=== PATIENT | female | born 1930 | race Caucasian/White ===

== ENCOUNTER 2016-09-08 20:20 | Emergency (ER) | payer MEDICARE, OTHER ==
[2016-09-08 20:33] VITALS: BP 170/65
[2016-09-08] MEDS ORDERED: Diphtheria,Pertussis(Acell),Tetanus Vaccine 0.5 ML SDV inactive IM ONE (20:35)
--- NOTE | 2016-09-08 20:36 | EDM.PDOC ---
ED HPI HEAD INJURY - General Chief Complaint: Head Injury Stated Complaint: INJURY TO HEAD Time Seen by Provider: 09/08/16 20:33 Source of Information: Reports: Patient, Family (daughter and son. ) History Limitations: Reports: No limitations - History of Present Illness INITIAL COMMENTS - FREE TEXT/NARRATIVE: 84-year-old female presents the ED after falling out of her shower at her home. She is recently relocated To [facility]. this was the first time she did use the shower. She fell backwards out of the shower onto a tiled concrete floor head first. She has suffered a deep laceration to the midline of the occipital scalp. Days but no loss of consciousness. The other injuries seems to be to her but not i.e. sacrum and coccyx area. Of note the patient is on blood thinner Effient. she is unsure when her last tetanus was updated. Symptom Onset Date: 09/08/16 Symptom Onset Time: 20:00 Timing/Duration: Reports: Minutes:, Sudden onset Location: Reports: occipital, other (sacrum and coccyx) Quality: Reports: ache, constant Severity: moderate Place of Occurrence: home Improves with: none Worsens with: movement (walking.) Context: Reports: fall (see history of present illness) Associated Symptoms: Reports: headache, dizziness, dazed. 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 (see below) (none) - Related Data Allergies/ADRs: Allergies Allergy/AdvReac Type Severity Reaction Status Date / Time Disoewk-Zod-Rey Reductase AdvReac Severe Muscle Verified 09/08/16 20:27 Inhibitor Weakness Home Meds: Home Meds Levothyroxine [Synthroid] 50 mg PO DAILY 05/22/16 [History] Prasugrel [Effient] 5 mg PO QAM 05/22/16 [History] ClonazePAM [KlonoPIN] 0.5 mg PO BEDTIME 08/07/16 [History] FLUoxetine [PROzac] 40 mg PO DAILY 08/07/16 [History] Calcium Carb & Citrate/Vit D3 [Citracal + D ER] 2 tab PO DAILY 09/08/16 [History ] Flaxseed Oil [Flax Oil] 1,000 mg PO DAILY 09/08/16 [History] Multivitamin [Multivitamins] 1 cap PO DAILY 09/08/16 [History] Clifton-3S/DHA/Epa/Fish Oil/D3 [Fish Oil + D3 Softgel] 1 cap PO DAILY 09/08/16 [ History] Past Medical History Cardiovascular History: Reports: High cholesterol, Hypertension 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: Musculoskeletal History: Reports: Back pain, chronic, Neck pain, chronic, Osteoarthritis, Osteoporosis Neurological History: Reports: TIA, Vertigo Other Neuro History: vertigo Endocrine/Metabolic History: Reports: Hypothyroidism - Past Surgical History HEENT Surgical History: Reports: Tonsillectomy GI Surgical History: Reports: Cholecystectomy, Colonoscopy Social & Family History - Tobacco Use Smoking Status *Q: Never Smoker - Caffeine Use Caffeine Use: Reports: None - Alcohol Use Days Per Week of Alcohol Use: 0 - Recreational Drug Use Recreational Drug Use: No - Living Situation & Occupation Living situation: Reports: Occupation: retired ED ROS GENERAL - Review of Systems Review Of Systems: See Below Constitutional: Reports: weakness, fatigue. Denies: fever, chills, malaise, weight loss HEENT: Reports: Glasses, Vertigo (has had some vertigo problems in the past.) Respiratory: Denies: shortness of breath, wheezing, pleuritic chest pain, cough Cardiovascular: Reports: Blood pressure problem, Dyspnea on exertion. Denies: Chest pain, Claudication (controlled with medication), Edema, Lightheadedness, Orthopnea Endocrine: Reports: fatigue GI/Abdominal: Reports: Constipation (sometime) : Reports: frequency, incontinence (urge component) Musculoskeletal: Reports: neck pain, shoulder pain, back pain Skin: Reports: bruising (bruises easily due to being on Effient. ) Neurological: Reports: dizziness, headache (at times), difficulty walking, weakness. Denies: numbness, seizure, tingling, tremors Psychiatric: Reports: No symptoms Hematologic/Lymphatic: Reports: no symptoms ED EXAM, HEAD INJURY - Physical Exam Exam: See Below Exam Limited By: No limitations General Appearance: alert, WD/WN, mild distress Head: scalp hematoma (large hematoma and deep appears almost 2 inch laceration mid occipital scalp.), scalp tenderness, active bleeding. No: raccoon eyes Nexus Criteria: No: posterior, midline cervical tenderness, evidence of intoxication, altered level of consciousness, focal neurological deficit, painful distracting injuries Eyes: bilateral eye: normal inspection, PERRL Ears: normal TMs Throat/Mouth: Normal inspection, Normal lips, Normal oropharynx Neck: non-tender, full range of motion, normal alignment, normal inspection, other (full unrestricted range of motion of cervical spine.) Respiratory: lungs clear, normal breath sounds, decreased breath sounds (mildly decreased breath sounds to both posterior lung mckenna.) Cardiovascular: regular rate, rhythm, no edema, no gallop, no murmur, no rub GI/Abdominal Exam (Abbreviated): normal bowel sounds, soft, non tender, no abnormal bruit Back Exam: normal inspection, full range of motion, other (no palpable tenderness along the thoracic or lumbar spine. There is tenderness over the upper sacrum and coccyx area. Ischial tuberosities appear to be intact and normal.) Extremities: no evidence of injury, normal range of motion, non-tender, other ( no injuries to the elbow [place] and knees.) Neurologic: no motor/sensory deficits, alert, normal mood/affect, oriented x 3 Skin: Normal color, Warm/dry - Heather Coma Score Best Eye Response (Chilton): (4) open spontaneously Best Verbal Response (Chilton): (5) oriented Best Motor Response (Heather): (6) obeys commands Chilton Total: 15 ED LACERATION/WOUND & ESTELA PROC - Laceration/Wound Repair Middle Mid-Posterior Midline Head Lac/wound length in cm: 3.0 Appearance: subcutaneous, clean Distal NVT: neuro & vascular intact Anesthetic type: local Local anesthesia - Lidocaine (Xylocaine): 1% with epi Local anesthetic volume: other (10) Exploration/Debridement/Repair: wound explored (several clots removed. But no contamination of the wound was identified) Suture size: 4-0 # of sutures: 7 Suture type: prolene, interrupted, simple Course - Vital Signs Last Recorded V/S: Last Vital Signs Temp 36.7 C 09/08/16 20:27 Pulse 73 09/08/16 20:27 Resp 16 09/08/16 20:27 BP 170/65 H 09/08/16 20:27 Pulse Ox 97 09/08/16 20:27 - Orders/Labs/Meds Orders: Active Orders 24 hr Category Date Time Status Vaccines to be Administered [RC] PER UNIT ROUTINE Care 09/08/16 20:35 Active Head wo Cont [CT] Stat Exams 09/08/16 20:33 Taken Pelvis wo Cont [CT] Stat Exams 09/08/16 20:34 Taken Meds: Medications Discontinued Medications Generic Name Dose Route Start Last Admin Trade Name Juju PRN Reason Stop Dose Admin Diphtheria/Tetanus/Acell Pertussis 0.5 ml 09/08/16 20:35 09/08/16 21:27 Boostrix IM 09/08/16 20:36 0.5 ml .ONCE ONE Administration Lidocaine/Epinephrine 20 ml 09/08/16 20:46 09/08/16 21:28 Xylocaine 1% With Epinephrine 1:100,000 INJECT 09/08/16 20:47 20 ml ONETIME ONE Administration - Radiology Interpretation Free Text/Narrative:: 85-year-old female somehow managed to fall outside of her shower stall. She moved To [facility] earlier this week and this is the first time she used the shower. There is a little lip of the shower agent she may have tripped over this. She fell backwards landing hard on the back of her head with a deep laceration midoccipital scalp. Days but no reported loss of consciousness. Also injury to her lower pelvis which is mostly over the sacrum and coccyx area. Of note the patient is on Effient 5mg mg daily as a blood thinner.Plan TDap will be given.CT head and CT pelvis to be obtained. She will require laceration repair scalp. - Re-Assessments/Exams Free Text/Narrative Re-Assessment/Exam: 09/08/16 21:04CT scan of the head and brain he appears to be normal. There is no intracranial hemorrhage and no skull fractures identified. Soft tissue swelling appreciated neck supple scalp. CT of the pelvis reveals no fractures in the sacrum and the coccyx itself is very poorly visualized. No fractures within the remainder the pelvis identified either. Lumbar 5 vertebra also appears to be intact. 09/08/16 21:16the rash is red the CT of the head and pelvis as normal. Departure - Departure Time of Disposition: 21:42 Disposition: Home, Self-Care 01 Condition: fair Clinical Impression: Minor closed head injury Laceration of scalp Qualifiers: Encounter type: initial encounter Qualified Code(s): S01.01XA - Laceration without foreign body of scalp, initial encounter Contusion of sacrum Qualifiers: Encounter type: initial encounter Qualified Code(s): S30.0XXA - Contusion of lower back and pelvis, initial encounter Referrals: Ynes Gutierrez PA [Primary Care Provider] - Forms: ED Department Discharge Additional Instructions: evaluation in the emergency department today in regards to fall out of the shower at home tonight. Suffered a direct blow to the back of the head with a 3 cm laceration in the midline of the acceptable scalp. No reported loss of consciousness. Due to being on blood thinners CT scan of the head and brain was carried out. He does not reveal any skull fractures or any bleeding within the brain. Therefore bleeding into the brain is unlikely to happen in the future either. Secondly you suffered contusion to your lower back and tailbone sacrum area. CT scan of this area did not reveal any broken bones either. The laceration was repaired under local anesthetic x7 sutures. Treatment is daily cleanse this area with soap and water. Showering is okay. Then apply topical antibiotic such as bacitracin or Polysporin to the wound once daily. Sutures will need to be removed in the clinic in 10 days' time. her tetanus diphtheria and pertussis vaccine were also updated today and her good for the next 10 years.Mediastinal 650 mg every 4-6 hours as necessary for headache or pain relief. Followup with personal care provider if any further problems occur. - My Orders Last 24 Hours: My Active Orders 09/08/16 20:33 Head wo Cont [CT] Stat 09/08/16 20:34 Pelvis wo Cont [CT] Stat 09/08/16 20:35 Vaccines to be Administered [RC] PER UNIT ROUTINE - Assessment/Plan Last 24 Hours: My Active Orders 09/08/16 20:33 Head wo Cont [CT] Stat 09/08/16 20:34 Pelvis wo Cont [CT] Stat 09/08/16 20:35 Vaccines to be Administered [RC] PER UNIT ROUTINE
[2016-09-08] MEDS ORDERED: Lidocaine 1% with EPINEPHrine 1:100,000 20 ML MDV INJECT ONE (20:46)
--- NOTE | 2016-09-09 08:15 | CT ---
CT pelvis Technique: Multiple axial sections through the pelvis were obtained utilizing a bony algorithm. Reconstructed coronal and sagittal images were also obtained. Findings: Disc space narrowing noted at L4-L5 and L5-S1. Vacuum phenomena seen within the discs at L3-L4 through L5-S1. Bony structures are somewhat osteopenic. Mild joint space narrowing noted within the hips. Mild degenerative change is seen within the pubic symphysis. No acute fracture or other abnormality is seen. Impression: 1. Incidental findings as noted above. Nothing acute is identified on CT study of the pelvis. Diagnostic code #2 I agree with preliminary report issued by [employer] (preliminary report dictated on 09/08/16, 10:10 PM Central Time)
--- NOTE | 2016-09-09 08:30 | CT ---
Head CT Technique: Multiple axial sections through the brain were obtained. Intravenous contrast was not utilized. Comparison: Previous MRI brain of 11/24/14 is available. Findings: Ventricles along with basal cisterns and sulci over the convexities are within normal limits for the patient's age. Mild areas of diminished density noted within the periventricular and subcortical white matter compatible with small vessel ischemic demyelination change. No other abnormal parenchymal densities are seen. No evidence of intracranial hemorrhage. No midline shift or mass effect is seen. Bone window settings were reviewed which show the paranasal sinuses to appear clear. Mastoid sinuses and middle ear cavities are clear. No acute calvarial abnormality is seen. Soft tissue hematoma seen within the upper posterior parietal scalp. Impression: 1. Senescent change as noted above. 2. Soft tissue hematoma within the upper posterior parietal scalp. 3. No skull fracture is seen. No acute intracranial abnormality is identified. Diagnostic code #2 I agree with preliminary report issued by [employer] (preliminary report dictated on 09/08/16, 10:12 PM Central Time)
== END 2016-09-08 22:00 | disposition home or self-care (01) ==
LOC: JD.ED 20:20
DX: S01.01XA Laceration without foreign body of scalp, initial encounter (principal); S30.0XXA Contusion of lower back and pelvis, initial encounter; I10 Essential (primary) hypertension; E78.00 Pure hypercholesterolemia, unspecified; M19.90 Unspecified osteoarthritis, unspecified site; M81.0 Age-related osteoporosis without current pathological fracture; E03.9 Hypothyroidism, unspecified; Z86.73 Personal history of transient ischemic attack (TIA), and cerebral infarction without residual deficits; Z79.899 Other long term (current) drug therapy; Z88.8 Allergy status to other drugs, medicaments and biological substances; Z90.49 Acquired absence of other specified parts of digestive tract; Z98.890 Other specified postprocedural states; W18.2XXA Fall in (into) shower or empty bathtub, initial encounter; Y92.009 Unspecified place in unspecified non-institutional (private) residence as the place of occurrence of the external cause
CPT/HCPCS: 12001; 12002; 70450; 70450-26; 72192; 72192-26; 90715; 99283-25; 99284-25

== ENCOUNTER 2017-04-09 20:30 | Emergency (ER) | payer MEDICARE, OTHER ==
[2017-04-09 20:56] VITALS: BP 155/59
--- NOTE | 2017-04-09 22:05 | EDM.PDOC ---
ED HPI GENERAL MEDICAL PROBLEM - General Chief Complaint: Upper Extremity Injury/Pain Stated Complaint: FELL HURT RIGHT HAND Time Seen by Provider: 04/09/17 20:55 Source of Information: Reports: Patient History Limitations: Reports: No Limitations - History of Present Illness INITIAL COMMENTS - FREE TEXT/NARRATIVE: 86 year old female presents for evaluation and treatment of an injury to the right wrist an elbow. Injury occurred prior to arrival in the ER. Patient reports she was trying to close her blinds when she tripped and fell. Unsure exactly how she fell. She is currently complaining of pain to the right distal forearm and elbow. She also has a skin tear to the right distal arm. She denies any head trauma. Denies any headaches, syncope, neck pain vision changes, nausea , vomiting, dizziness, numbness, tingling, chest pain, shortness or breath or abdominal pain. Patient is right handed. Patient reports tetanus is up to date. Patient lives at [facility], she has assistance if needed. Onset: Today Location: Reports: Upper Extremity, Right Right Arm Pain Score (Numeric/FACES): 7 - Related Data Allergies Allergy/AdvReac Type Severity Reaction Status Date / Time Vmiiadt-Zep-Eay Reductase AdvReac Severe Muscle Verified 04/09/17 20:56 Inhibitor Weakness Home Meds: Home Meds ALPRAZolam [ALPRAZolam ODT] 0.25 mg PO ASDIRECTED PRN 04/09/17 [History] ClonazePAM [KlonoPIN] 0.5 mg PO BEDTIME 04/09/17 [History] Docosahexanoic Acid/EPA [Fish Oil Concentrate Softgel] 1 tab PO DAILY 04/09/17 [ History] Ezetimibe [Zetia] 10 mg PO BEDTIME 04/09/17 [History] FLUoxetine HCl [Fluoxetine HCl] 40 mg PO DAILY 04/09/17 [History] L.acidoph,Paracasei, B.lactis [Probiotic] 1 tab PO DAILY 04/09/17 [History] Levothyroxine [Synthroid] 50 mcg PO DAILY 04/09/17 [History] Loperamide [Imodium] 2 tab PO ASDIRECTED PRN 04/09/17 [History] Melatonin 5 mg PO BEDTIME 04/09/17 [History] Prasugrel HCl [Effient] 5 mg PO DAILY 04/09/17 [History] amLODIPine [Norvasc] 5 mg PO DAILY 04/09/17 [History] Past Medical History HEENT History: Reports: Cataract, Hard of Hearing, Impaired Vision, Other (See Below) Other HEENT History: menieres disease Cardiovascular History: Reports: High Cholesterol, Hypertension, Other (See Below) Other Cardiovascular History: occlusion and stenosis of bilateral carotid arteries Gastrointestinal History: Reports: Irritable Bowel Syndrome 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: Musculoskeletal History: Reports: Back Pain, Chronic, Neck Pain, Chronic, Osteoarthritis, Osteoporosis Neurological History: Reports: TIA, Vertigo, Other (See Below) Other Neuro History: vertigo, hyponatremia, hypo-osmolality Psychiatric History: Reports: Anxiety, Depression, Other (See Below) Other Psychiatric History: insomnia Endocrine/Metabolic History: Reports: Hypothyroidism - Past Surgical History Musculoskeletal Surgical History: Reports: Shoulder Surgery Social & Family History - Tobacco Use Smoking Status *Q: Never Smoker - Caffeine Use Caffeine Use: Reports: None - Alcohol Use Days Per Week of Alcohol Use: 0 - Recreational Drug Use Recreational Drug Use: No - Living Situation & Occupation Living situation: Reports: Occupation: Retired Review of Systems - Review of Systems Review Of Systems: See Below Eyes: Denies: Blurred Vision Respiratory: Denies: Shortness of Breath Cardiovascular: Denies: Chest Pain GI/Abdominal: Denies: Abdominal Pain, Nausea, Vomiting Musculoskeletal: Reports: Arm Pain (pain to the right wrist and elbow), Joint Swelling (swelling to the right wrist). Denies: Neck Pain Skin: Reports: Wound (approximately 1cm sking tear to the right distal humerus) Neurological: Denies: Dizziness, Headache, Numbness, Syncope, Tingling, Difficulty Walking ED EXAM, GENERAL - Physical Exam Exam: See Below Exam Limited By: No Limitations General Appearance: Alert, WD/WN, No Apparent Distress Eye Exam: Bilateral Eye: Normal Inspection, PERRL Ears: Normal External Exam Nose: Normal Inspection Throat/Mouth: Normal Inspection, Normal Lips, Normal Voice, No Airway Compromise Head: Atraumatic, Normocephalic Neck: Normal Inspection, Supple, Non-Tender Respiratory/Chest: No Respiratory Distress, Lungs Clear, Normal Breath Sounds Cardiovascular: Normal Peripheral Pulses, Regular Rate, Rhythm, No Murmur Peripheral Pulses: 2+: Radial (L), Radial (R), Posterior Tibial (L), Posterior Tibial (R), Dorsalis Pedis (L), Dorsalis Pedis (R) GI/Abdominal: Normal Bowel Sounds, Soft, Non-Tender Extremities: Normal Capillary Refill, Arm Pain (right wrist and elbow pain), Other (swelling to the right distal radius and ulna; full ROM to the right elbow ; pain with flexion and extension of the right wrist) Neurological: Alert, Oriented, Normal Cognition, Normal Gait Psychiatric: Normal Affect, Normal Mood Skin Exam: Warm, Dry, Normal Color, Ecchymosis, Wound/Incision (1cm skin tear to the right distal arm) ED TRAUMA EXTREMITY PROCEDURES - Splinting Right Upper Extremity Splint Site: right wrist and forearm Pre-Procedure NV Status: Normal Post-Procedure NV Status: Normal Splint Material: Other (orthoglass) Splint Design: Volar Applied & Form Fitted By: Provider, Nurse Provider Post-Splint Application NV Check: NV Status Normal, Good Position Complications: No Course - Vital Signs Last Recorded V/S: Last Vital Signs Temp 36.1 C 04/09/17 20:52 Pulse 66 04/09/17 20:52 Resp 16 04/09/17 20:52 BP 155/59 H 04/09/17 20:52 Pulse Ox 96 04/09/17 20:52 - Radiology Interpretation Free Text/Narrative:: X-ray of the right wrist and elbow shows a slightly displaced fracture of the right distal radius any fracture of the right distal ulna. - Re-Assessments/Exams Free Text/Narrative Re-Assessment/Exam: 04/09/17 22:04 I reviewed the xray results with the patient and her family. Patient was splinted and placed in a sling. She tolerated the procedure well. No complications. Departure - Departure Time of Disposition: 22:12 Disposition: Home, Self-Care 01 Condition: Fair Clinical Impression: Closed fracture of radius and ulna - Discharge Information Instructions: Radial Fracture, Ulnar Fracture Referrals: Ynes Gutierrez PA [Primary Care Provider] - Reji Rojas MD [Physician] - Forms: ED Department Discharge Additional Instructions: Wear the splint at all times. Keep covered when in the shower or exposed to water. Cover with a bag or saran wrap. Wear the splint. Remove the arm from the splint 3 or 4 times a day and perform pendulum arm circles to prevent a frozen shoulder. Ice the sore area, even over the splint, 3 times a day for about 30 minutes. [id number] Tylenol or Motrin as needed for pain relief. Follow up with orthopedics in 7-[address] Rodrigues. Please call [phone]. If you are unable to see Dr. Adrian, recommend Dr. Rojas. Please call [phone] Rojas. Please return to the ER if your symptoms change or worsen.
--- NOTE | 2017-04-10 08:10 | CR ---
Right wrist: Three views of the right wrist were obtained. Comparison: No prior wrist exam. Fracture is identified within the distal radius involving the metaphysis. Minimal posterior impaction is seen. Joint space narrowing is noted off the distal navicular bone. Mild degenerative change is seen within the CMC joint of the thumb. No additional fracture or other abnormality is seen. Impression: 1. Minimally impacted fracture of the distal right radial. 2. Mild degenerative change as noted above. Diagnostic code #3
--- NOTE | 2017-04-10 08:10 | CR ---
Right elbow: Four views of the right elbow were obtained. Comparison: No prior elbow exam. Joint spaces are maintained. No joint effusion is identified. No acute fracture or other bony abnormality is seen. Impression: 1. No abnormality is identified on right elbow study. Diagnostic code #1
== END 2017-04-09 22:25 | disposition home or self-care (01) ==
LOC: JD.ED 20:30
DX: S52.501A Unspecified fracture of the lower end of right radius, initial encounter for closed fracture (principal); E78.00 Pure hypercholesterolemia, unspecified; I10 Essential (primary) hypertension; E03.9 Hypothyroidism, unspecified; Z79.899 Other long term (current) drug therapy; Z86.73 Personal history of transient ischemic attack (TIA), and cerebral infarction without residual deficits; W01.0XXA Fall on same level from slipping, tripping and stumbling without subsequent striking against object, initial encounter
CPT/HCPCS: 29125; 73080-26-RT; 73080-RT; 73110-26-RT; 73110-RT; 99283-25

== ENCOUNTER 2018-10-27 08:47 | Emergency (ER) | payer MEDICARE, OTHER ==
[2018-10-27 09:04] VITALS: BP 166/63
--- NOTE | 2018-10-27 11:10 | EDM.PDOC ---
<HariTanvi - Last Filed: 10/27/18 12:05> ED HPI GENERAL MEDICAL PROBLEM - General Chief Complaint: Chest Pain Stated Complaint: CHEST PAIN Time Seen by Provider: 10/27/18 09:06 Source of Information: Reports: Patient History Limitations: Reports: No Limitations - History of Present Illness INITIAL COMMENTS - FREE TEXT/NARRATIVE: 88 y/o Female presented to ER with cc chest pain. She reports around 0700 this morning after having a BM she developed substernal chest pain. She described the pain as a "knife going through her chest." She states she became nauseated and was diaphoretic. She reports the pain did not radiate to jaw or arms. She denies any SOB. She states she rested for awhile and the pain subsided. She reports having a history of high cholesterol and carotid artery disease. She is accompanied by family. She is a resident of [facility]. Onset: Today, Sudden Onset Date: 10/27/18 Onset Time: 07:00 Duration: Resolved Prior to Arrival Location: Reports: Chest Quality: Reports: Ache Severity: Mild Improves with: Reports: Rest Worsens with: Reports: None Associated Symptoms: Reports: Chest Pain, Diaphoresis, Nausea/Vomiting. Denies : Cough, Fever/Chills, Shortness of Breath - Related Data Allergies Allergy/AdvReac Type Severity Reaction Status Date / Time Ivuofdy-Ecg-Qzn Reductase AdvReac Severe Muscle Verified 10/27/18 09:04 Inhibitor Weakness Home Meds: Home Meds ALPRAZolam [ALPRAZolam ODT] 0.25 mg PO ASDIRECTED PRN 04/09/17 [History] Docosahexanoic Acid/EPA [Fish Oil Concentrate Softgel] 1 tab PO DAILY 04/09/17 [ History] L.acidoph,Paracasei, B.lactis [Probiotic] 1 tab PO DAILY 04/09/17 [History] Levothyroxine [Synthroid] 50 mcg PO DAILY 04/09/17 [History] Loperamide [Imodium] 2 tab PO ASDIRECTED PRN 04/09/17 [History] Melatonin 5 mg PO BEDTIME 04/09/17 [History] Prasugrel HCl [Effient] 5 mg PO DAILY 04/09/17 [History] Alendronate [Fosamax] 1 dose PO ASDIRECTED 10/27/18 [History] ClonazePAM [KlonoPIN] 0.5 mg PO QPM 10/27/18 [History] FLUoxetine [PROzac] 20 mg PO DAILY 10/27/18 [History] Prasugrel HCl [Effient] 10 mg PO DAILY 10/27/18 [History] Past Medical History HEENT History: Reports: Cataract, Hard of Hearing, Impaired Vision, Other (See Below) Other HEENT History: menieres disease Cardiovascular History: Reports: High Cholesterol, Hypertension, Other (See Below) Other Cardiovascular History: occlusion and stenosis of bilateral carotid arteries Gastrointestinal History: Reports: Irritable Bowel Syndrome 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: Musculoskeletal History: Reports: Back Pain, Chronic, Neck Pain, Chronic, Osteoarthritis, Osteoporosis Neurological History: Reports: TIA, Vertigo, Other (See Below) Other Neuro History: vertigo, hyponatremia, hypo-osmolality Psychiatric History: Reports: Anxiety, Depression, Other (See Below) Other Psychiatric History: insomnia Endocrine/Metabolic History: Reports: Hypothyroidism - Past Surgical History GI Surgical History: Reports: Cholecystectomy Social & Family History - Tobacco Use Smoking Status *Q: Never Smoker - Caffeine Use Caffeine Use: Reports: Coffee - Recreational Drug Use Recreational Drug Use: No - Living Situation & Occupation Living situation: Reports: Occupation: Retired ED ROS GENERAL - Review of Systems Review Of Systems: See Below Constitutional: Denies: Fever, Chills, Decreased Appetite HEENT: Reports: Vertigo Respiratory: Denies: Shortness of Breath Cardiovascular: Reports: Chest Pain. Denies: Dyspnea on Exertion, Lightheadedness, Orthopnea, Palpitations, Syncope Endocrine: Reports: No Symptoms GI/Abdominal: Reports: No Symptoms : Reports: No Symptoms Musculoskeletal: Reports: Neck Pain Skin: Reports: No Symptoms Neurological: Denies: Confusion, Dizziness, Headache, Numbness, Syncope, Weakness Psychiatric: Reports: No Symptoms Hematologic/Lymphatic: Reports: No Symptoms Immunologic: Reports: No Symptoms ED EXAM, GENERAL - Physical Exam Exam: See Below Exam Limited By: Altered Mental Status General Appearance: Alert, No Apparent Distress Ears: Normal External Exam, Normal Canal, Hearing Grossly Normal, Normal TMs Nose: Normal Inspection, Normal Mucosa, No Blood Throat/Mouth: Normal Inspection, Normal Lips, Normal Teeth, Normal Gums, Normal Oropharynx, Normal Voice, No Airway Compromise Head: Atraumatic, Normocephalic Neck: Normal Inspection, Supple, Non-Tender, Full Range of Motion Respiratory/Chest: No Respiratory Distress, Lungs Clear, Normal Breath Sounds, No Accessory Muscle Use, Chest Non-Tender Cardiovascular: Normal Peripheral Pulses, Regular Rate, Rhythm, No Edema, No Gallop, No JVD, No Murmur, No Rub GI/Abdominal: Normal Bowel Sounds, Non-Tender, No Distention, No Mass Back Exam: Normal Inspection, Full Range of Motion Extremities: Normal Inspection, Normal Range of Motion, Non-Tender, No Pedal Edema, Normal Capillary Refill Neurological: Alert, Oriented, CN II-XII Intact, Normal Cognition, Normal Gait, Normal Reflexes, No Motor/Sensory Deficits Psychiatric: Normal Affect, Normal Mood Skin Exam: Warm, Dry, Intact, Normal Color, No Rash Lymphatic: No Adenopathy EKG INTERPRETATION EKG Date: 10/27/18 Time: 09:03 Rhythm: NSR Rate (Beats/Min): 58 (bradycardia) EKG Interpretation Comments: Sinus bradycardia rate 58 bpm. First degree AV block, poor R-wave progression with late transition. LAD-69, new Q-wave in leads 23 and aVF consider old inferior wall IA, no acute ischemia Course - Vital Signs Last Recorded V/S: Last Vital Signs Temp 36.9 C 10/27/18 08:59 Pulse 62 10/27/18 08:59 Resp 12 10/27/18 08:59 BP 166/63 H 10/27/18 08:59 Pulse Ox 96 10/27/18 08:59 - Orders/Labs/Meds Orders: Active Orders 24 hr Category Date Time Status EKG 12 Lead [EKG Documentation Completion] [RC] STAT Care 10/27/18 10:56 Active Chest 2V [CR] Stat Exams 10/27/18 09:08 Taken Labs: Laboratory Tests 10/27/18 10/27/18 10/27/18 Range/Units 09:25 09:25 09:25 WBC 5.75 (3.98-10.04) K/mm3 RBC 4.56 (3.98-5.22) M/mm3 Hgb 13.9 (11.2-15.7) gm/L Hct 42.8 (34.1-44.9) % MCV 93.9 (79.4-94.8) fl MCH 30.5 (25.6-32.2) pg MCHC 32.5 (32.2-35.5) g/dl RDW Std Deviation 44.0 (36.4-46.3) fL Plt Count 237 (182-369) K/mm3 MPV 9.4 (9.4-12.3) fl Neut % (Auto) 57.4 (34.0-71.1) % Lymph % (Auto) 28.7 (19.3-51.7) % [place] % (Auto) 11.5 (4.7-12.5) % Eos % (Auto) 1.9 (0.7-5.8) Baso % (Auto) 0.5 (0.1-1.2) % Neut # (Auto) 3.30 (1.56-6.13) K/mm3 Lymph # (Auto) 1.65 (1.18-3.74) K/mm3 [place] # (Auto) 0.66 H (0.24-0.36) K/mm3 Eos # (Auto) 0.11 (0.04-0.36) K/mm3 Baso # (Auto) 0.03 (0.01-0.08) K/mm3 D-Dimer, Quantitative 0.35 (0.19-0.50) mg/L Sodium 139 (136-145) mEq/L Potassium 4.4 (3.5-5.1) mEq/L Chloride 102 (98-107) mEq/L Carbon Dioxide 28 (21-32) mEq/L Anion Gap 13.4 (5-15) BUN 14 (7-18) mg/dL Creatinine 1.0 (0.55-1.02) mg/dL Est Cr Clr Drug Dosing 31.94 mL/min Estimated GFR (MDRD) 53 (>60) mL/min BUN/Creatinine Ratio 14.0 (14-18) Glucose 98 (83-115) mg/dL Calcium 9.8 (8.5-10.1) mg/dL Total Bilirubin 0.9 (0.2-1.0) mg/dL AST 19 (15-37) U/L ALT 26 (14-59) U/L Alkaline Phosphatase 37 L (46-116) U/L CK-MB (CK-2) 0.6 (0-3.6) ng/ml Troponin I < 0.017 (0.00-0.056) ng/mL Total Protein 7.4 (6.4-8.2) g/dl Albumin 3.8 (3.4-5.0) g/dl Globulin 3.6 gm/dL Albumin/Globulin Ratio 1.1 (1-2) 10/27/18 Range/Units 09:55 WBC (3.98-10.04) K/mm3 RBC (3.98-5.22) M/mm3 Hgb (11.2-15.7) gm/L Hct (34.1-44.9) % MCV (79.4-94.8) fl MCH (25.6-32.2) pg MCHC (32.2-35.5) g/dl RDW Std Deviation (36.4-46.3) fL Plt Count (182-369) K/mm3 MPV (9.4-12.3) fl Neut % (Auto) (34.0-71.1) % Lymph % (Auto) (19.3-51.7) % [place] % (Auto) (4.7-12.5) % Eos % (Auto) (0.7-5.8) Baso % (Auto) (0.1-1.2) % Neut # (Auto) (1.56-6.13) K/mm3 Lymph # (Auto) (1.18-3.74) K/mm3 [place] # (Auto) (0.24-0.36) K/mm3 Eos # (Auto) (0.04-0.36) K/mm3 Baso # (Auto) (0.01-0.08) K/mm3 D-Dimer, Quantitative (0.19-0.50) mg/L Sodium (136-145) mEq/L Potassium (3.5-5.1) mEq/L Chloride (98-107) mEq/L Carbon Dioxide (21-32) mEq/L Anion Gap (5-15) BUN (7-18) mg/dL Creatinine (0.55-1.02) mg/dL Est Cr Clr Drug Dosing mL/min Estimated GFR (MDRD) (>60) mL/min BUN/Creatinine Ratio (14-18) Glucose (83-115) mg/dL Calcium (8.5-10.1) mg/dL Total Bilirubin (0.2-1.0) mg/dL AST (15-37) U/L ALT (14-59) U/L Alkaline Phosphatase (46-116) U/L CK-MB (CK-2) (0-3.6) ng/ml Troponin I < 0.017 (0.00-0.056) ng/mL Total Protein (6.4-8.2) g/dl Albumin (3.4-5.0) g/dl Globulin gm/dL Albumin/Globulin Ratio (1-2) - Re-Assessments/Exams Free Text/Narrative Re-Assessment/Exam: 10/27/18 11:16 88-year-old female presents to emergency room chief complaints of new onset of chest pain. Her EKG revealed sinus bradycardia rate of 58 with a first-degree AV block. Chest x-ray revealed no acute findings. WBC 5.75 RBC 4.56 H&H 13.9 and 42.8. D-dimer 0.35, sodium 139 potassium 4.4 chloride 102 CO2 28 bun14. Creatinine 1.0 troponin 0.017. I do not feel that her chest pain is cardiac in nature. I will discharge home with instructions to follow up with her PCP. Instructed to return to the emergency room for any new or acutely worsening symptoms. Patient and family members verbalized understanding and are comfortable plan for discharge. Patient is stable at discharge. 10/27/18 12:05 Her second troponin is negative at 0.017. I will discharge home. I discussed findings with patient and family are comfortable plan for discharge. Departure - Departure Time of Disposition: 12:06 Disposition: Home, Self-Care 01 Condition: Good Clinical Impression: Atypical chest pain Instructions: Nonspecific Chest Pain, [id number] Referrals: Kareem Gutierrez PA [Primary Care Provider] - Forms: ED Department Discharge Additional Instructions: You have been diagnosis with atypical chest pain. Your EKG revealed no ischemic changes to indicate a heart attack. your blood studies revealed no acute findings to suggest infection or cardiac concerns. Your chest x-ray revealed no acute findings. I recommend you follow up with your PCP. Return to the emergency room for any new or acutely worsening symptoms. <Dayron Martins - Last Filed: 10/27/18 19:45> Course - Radiology Interpretation Free Text/Narrative:: 88-year-old female presents to the ED with reported central chest pain that lasts about an hour this morning. It radiates slightly through to her mid back. Perhaps made her slightly short of breath. She denies any pain when she is seen in the ED. vital signs are completely stable and O2 sats are 96% on room air. He describes his pain as being very sharp and stabbing or knifelike going right through her. She believes it did hurt a little worse to take a deep breath of the time. Did have some diaphoresis and mild nausea but did not vomit. She does have problems with GERD but states that recently it seems to be under good control. Patient has a history of coronary disease is and is on Effient. ECG were over read by me and does not show any signs of acute ischemia. Chest x-ray also reviewed and show signs of hyperinflated lung mckenna with statement of some mild COPD and some fibrosis in the lower lung mckenna. Cardiac silhouette is mildly enlarged. The initial cardiac markers are normal with a troponin level less than 0.017. The d-dimer is also well within normal range. Case discussed with the patient and her family members. Care will be continued by nurse practitioner Tanvi Noriega. Patient I feel is safe for discharge home of her second set of cardiac markers are normal.
--- NOTE | 2018-10-28 08:26 | CR ---
Chest: Two views of the chest were obtained. Comparison: Prior chest x-ray of 11/22/14. Heart size within normal limits for AP technique. Tortuous thoracic aorta is seen. Lungs are clear with no acute parenchymal change. Mild compression deformity is noted within the spine which appears old with mild scoliosis. Impression: 1. Incidental findings. Nothing acute is appreciated on chest x-ray. Diagnostic code #2
== END 2018-10-27 12:15 | disposition home or self-care (01) ==
LOC: JD.ED 08:47
DX: R07.89 Other chest pain (principal); I10 Essential (primary) hypertension; E03.9 Hypothyroidism, unspecified; Z88.8 Allergy status to other drugs, medicaments and biological substances; Z79.899 Other long term (current) drug therapy
CPT/HCPCS: 36415; 71046; 71046-26; 80053; 82553; 84484; 85025; 85379; 93005; 93010; 99285; 99285-25

== ENCOUNTER 2021-03-13 17:42 | Emergency (ER) | payer MEDICARE, OTHER ==
[2021-03-13] MEDS ORDERED: Ketorolac 30 MG/ML SDV IM ONE (18:37)
--- NOTE | 2021-03-13 18:52 | EDM.PDOC ---
ED HPI GENERAL MEDICAL PROBLEM - General Chief Complaint: General Stated Complaint: HIGH BP Time Seen by Provider: 03/13/21 18:15 Source of Information: Reports: Patient, Family History Limitations: Reports: No Limitations - History of Present Illness INITIAL COMMENTS - FREE TEXT/NARRATIVE: The patient presents with elevated blood pressure, headache, neck pain and joint pain. The neck pain is chronic. This has been going on for about 3 years. She has had MRIs and has been to many specialists. She was on gabapentin and hydrocodone at one time and that did not seam to work. She was then on oxycodone. That helped with the pain but she had some bad dreams with that. She then ended up on a fentanyl patch. She had a slow decline with that. She did not recognize her own family. She was taken off of that on . She not has more pain and her blood pressure is up. She also has a headache. Her neck hurts and multiple joints hurt. She has no fever, chills, cough, chest pain, shortness of breath, abdominal pain, nausea or vomiting. She has no numbness or weakness. She was told she has spinal stenosis but she is not a candidate for surgery. Onset: Gradual Duration: Day(s): Location: Reports: Head, Neck Quality: Reports: Sharp Severity: Severe Improves with: Reports: Immobilization Worsens with: Reports: Heat Therapy Context: Denies: Trauma Associated Symptoms: Reports: No Other Symptoms Other Treatments SUPPORT STAFF: pt is on tylenol arthritis Headache Pain Score (Numeric/FACES): 8 Neck Pain Score (Numeric/FACES): 10 Back Pain Score (Numeric/FACES): 5 Bilateral Knee Pain Score (Numeric/FACES): 5 Feet Pain Score (Numeric/FACES): 5 - Related Data Allergies Allergy/AdvReac Type Severity Reaction Status Date / Time simvastatin [From Zocor] Allergy unknown Verified 10/14/20 14:25 Srtlsev-Umm-Ygr Reductase AdvReac Severe Muscle Verified 10/27/18 09:04 Inhibitor Weakness Home Meds: Home Meds ALPRAZolam [ALPRAZolam ODT] 0.25 mg PO ASDIRECTED PRN 04/09/17 [History] Docosahexaenoic Acid/Epa [Fish Oil Concentrate Softgel] 1 tab PO DAILY 04/09/17 [History] L.acidoph,Paracasei, B.lactis [Probiotic] 1 tab PO DAILY 04/09/17 [History] Levothyroxine [Synthroid] 50 mcg PO DAILY 04/09/17 [History] Loperamide [Imodium] 2 tab PO ASDIRECTED PRN 04/09/17 [History] Melatonin 5 mg PO BEDTIME 04/09/17 [History] Prasugrel HCl [Effient] 5 mg PO DAILY 04/09/17 [History] Alendronate [Fosamax] 1 dose PO ASDIRECTED 10/27/18 [History] ClonazePAM [KlonoPIN] 0.5 mg PO QPM 10/27/18 [History] FLUoxetine [PROzac] 20 mg PO DAILY 10/27/18 [History] Prasugrel HCl [Effient] 10 mg PO DAILY 10/27/18 [History] Benzocaine/Menthol [Cepacol Sore Throat Lozenge] 1 each MM 10/14/20 [History] ClonazePAM [KlonoPIN] 0.5 mg PO TID PRN #9 tab 03/13/21 [Rx] cloNIDine [Catapres] 0.1 mg PO Q12HR #10 tab 03/13/21 [Rx] Past Medical History HEENT History: Reports: Cataract, Hard of Hearing, Impaired Vision, Other (See Below) Other HEENT History: menieres disease Cardiovascular History: Reports: High Cholesterol, Hypertension, Other (See Below) Other Cardiovascular History: occlusion and stenosis of bilateral carotid arteries Gastrointestinal History: Reports: Irritable Bowel Syndrome 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: Musculoskeletal History: Reports: Back Pain, Chronic, Neck Pain, Chronic, Osteoarthritis, Osteoporosis Neurological History: Reports: TIA, Vertigo, Other (See Below) Other Neuro History: vertigo, hyponatremia, hypo-osmolality Psychiatric History: Reports: Anxiety, Depression, Other (See Below) Other Psychiatric History: insomnia Endocrine/Metabolic History: Reports: Hypothyroidism - Past Surgical History HEENT Surgical History: Reports: Tonsillectomy GI Surgical History: Reports: Cholecystectomy Musculoskeletal Surgical History: Reports: Shoulder Surgery Social & Family History - Tobacco Use Tobacco Use Status *Q: Never Tobacco User - Caffeine Use Caffeine Use: Reports: Coffee - Recreational Drug Use Recreational Drug Use: No - Living Situation & Occupation Living situation: Reports: Occupation: Retired ED ROS GENERAL - Review of Systems Review Of Systems: See Below Constitutional: Reports: No Symptoms HEENT: Reports: No Symptoms Respiratory: Reports: No Symptoms Cardiovascular: Reports: No Symptoms Endocrine: Reports: No Symptoms GI/Abdominal: Reports: No Symptoms : Reports: No Symptoms Musculoskeletal: Reports: Neck Pain, Other (multiple joints hurt) ED EXAM, GENERAL - Physical Exam Exam: See Below Exam Limited By: No Limitations General Appearance: Alert, No Apparent Distress Ears: Normal External Exam Nose: Normal Inspection Head: Atraumatic, Normocephalic Neck: Normal Inspection, Supple, Tender Midline Respiratory/Chest: No Respiratory Distress, Lungs Clear, Normal Breath Sounds Cardiovascular: Regular Rate, Rhythm, No Edema, No Murmur GI/Abdominal: Soft, Non-Tender, No Organomegaly, No Mass Neurological: Alert, Oriented, No Motor/Sensory Deficits Course - Vital Signs Last Recorded V/S: Last Vital Signs Temp 97.5 F 03/13/21 18:04 Pulse 64 03/13/21 18:04 Resp 20 03/13/21 18:04 BP 187/66 H 03/13/21 18:04 Pulse Ox 97 03/13/21 18:04 - Orders/Labs/Meds Orders: Active Orders 24 hr Category Date Time Status Cardiac Monitoring [RC] . DIRECTED Care 03/13/21 18:35 Active Head wo Cont [CT] Stat Exams 03/13/21 18:37 Taken Labs: Laboratory Tests 03/13/21 03/13/21 03/13/21 Range/Units 18:50 18:50 18:50 WBC 6.70 (3.98-10.04) K/mm3 RBC 4.28 (3.98-5.22) M/mm3 Hgb 13.5 (11.2-15.7) gm/dl Hct 40.9 (34.1-44.9) % MCV 95.6 H (79.4-94.8) fl MCH 31.5 (25.6-32.2) pg MCHC 33.0 (32.2-35.5) g/dl RDW Std Deviation 43.0 (36.4-46.3) fL Plt Count 226 (182-369) K/mm3 MPV 9.5 (9.4-12.3) fl Neut % (Auto) 56.8 (34.0-71.1) % Lymph % (Auto) 29.0 (19.3-51.7) % [place] % (Auto) 12.5 (4.7-12.5) % Eos % (Auto) 1.3 (0.7-5.8) Baso % (Auto) 0.4 (0.1-1.2) % Neut # (Auto) 3.80 (1.56-6.13) K/mm3 Lymph # (Auto) 1.94 (1.18-3.74) K/mm3 [place] # (Auto) 0.84 H (0.24-0.36) K/mm3 Eos # (Auto) 0.09 (0.04-0.36) K/mm3 Baso # (Auto) 0.03 (0.01-0.08) K/mm3 ESR 7 (0-20) mm/hr Sodium 138 (136-145) mEq/L Potassium 4.3 (3.5-5.1) mEq/L Chloride 103 (98-107) mEq/L Carbon Dioxide 27 (21-32) mEq/L Anion Gap 12.3 (5-15) BUN 8 (7-18) mg/dL Creatinine 0.8 (0.55-1.02) mg/dL Est Cr Clr Drug Dosing 38.44 mL/min Estimated GFR (MDRD) > 60 (>60) mL/min BUN/Creatinine Ratio 10.0 L (14-18) Glucose 104 H (70-99) mg/dL Calcium 9.2 (8.5-10.1) mg/dL Total Bilirubin 0.7 (0.2-1.0) mg/dL AST 21 (15-37) U/L ALT 35 (14-59) U/L Alkaline Phosphatase 35 L (46-116) U/L C-Reactive Protein <0.2 (<1.0) mg/dL Total Protein 7.2 (6.4-8.2) g/dl Albumin 3.9 (3.4-5.0) g/dl Globulin 3.3 gm/dL Albumin/Globulin Ratio 1.2 (1-2) Meds: Medications Discontinued Medications Generic Name Dose Route Start Last Admin Trade Name Freq PRN Reason Stop Dose Admin Clonazepam 1 mg 03/13/21 19:56 Clonazepam 1 Mg Tab PO 03/13/21 19:57 ONETIME ONE Clonidine HCl 0.1 mg 03/13/21 19:56 Clonidine 0.1 Mg Tab PO 03/13/21 19:57 ONETIME ONE Ketorolac Tromethamine 30 mg 03/13/21 18:37 03/13/21 19:09 Ketorolac 30 Mg/Ml Sdv IM 03/13/21 18:38 30 mg ONETIME ONE Administration - Re-Assessments/Exams Free Text/Narrative Re-Assessment/Exam: 03/13/21 18:[address] of her head, labs and toradol 30mg IM. 03/13/21 20:02 Her labs look good along with her CT of her head. She feels the same. I feel she is withdrawing from the opiods. I will give her a dose of clonidine and some clonazapam here and a prescription for more. Departure - Departure Time of Disposition: 20:05 Disposition: Home, Self-Care 01 Condition: Good Clinical Impression: Opioid withdrawal, Chronic neck pain, Generalized muscle ache - Discharge Information *PRESCRIPTION DRUG MONITORING PROGRAM REVIEWED*: Not Applicable *COPY OF PRESCRIPTION DRUG MONITORING REPORT IN PATIENT SHARMAINE: Not Applicable Prescriptions: cloNIDine [Catapres] 0.1 mg PO Q12HR #10 tab ClonazePAM [KlonoPIN] 0.5 mg PO TID PRN #9 tab PRN Reason: Anxiety Referrals: Blanca Michele, DISTRICT MANAGER [employer]AL SERVICE [Primary Care Provider] - 3 Days Forms: ED Department Discharge Additional Instructions: Take the clonidine 2 times per day for 4 days and then one per day for 2 days and then you can stop. Take the clonazapam 0.5mg 3 times per day for 3 days and then go back to the nightly dose. Follow up with Blanca Michele within a few days. Please return if you are worse. Sepsis Event Note (ED) - Focused Exam Vital Signs: Vital Signs Temp Pulse Resp BP Pulse Ox 03/13/21 18:04 97.5 F 64 20 187/66 H 97 - My Orders Last 24 Hours: My Active Orders 03/13/21 18:35 Cardiac Monitoring [RC] . DIRECTED 03/13/21 18:37 Head wo Cont [CT] Stat - Assessment/Plan Last 24 Hours: My Active Orders 03/13/21 18:35 Cardiac Monitoring [RC] . DIRECTED 03/13/21 18:37 Head wo Cont [CT] Stat
[2021-03-13] MEDS ORDERED: cloNIDine 0.1 MG Tab PO ONE (19:56)
[2021-03-13] MEDS ORDERED: ClonazePAM 1 MG Tab PO ONE (19:56)
[2021-03-13 20:28] VITALS: BP 179/65
[2021-03-13 20:56] VITALS: PULSE 53
--- NOTE | 2021-03-14 08:05 | CT ---
Head CT Technique: Multiple axial sections through the brain were obtained. Intravenous contrast was not utilized. Comparison: Prior MRI brain of 10/15/[address] study of 09/08/16. Findings: Ventricles along with basal cisterns and sulci over the convexities are mildly prominent. Mild diminished density is noted within the periventricular and subcortical white matter which is compatible with small vessel ischemic demyelination change. Atherosclerotic calcification is seen within the carotid siphon and within the vertebral vessels. Basal ganglia shows mild small vessel ischemic demyelination change. No evidence of intracranial hemorrhage is seen. No midline shift or mass-effect is appreciated. Bone window settings were reviewed. No acute calvarial abnormality is appreciated. Visualized mastoid sinuses and paranasal sinuses are clear. Mild atherosclerotic calcification is seen within the vertebral vessels and within the carotid siphon. Impression: 1. Senescent change as noted above. 2. No acute intracranial abnormality is identified. Diagnostic code #2 I agree with preliminary report from [facility], finalized on 03/13/21, 9:02 PM CDT, code 1
== END 2021-03-13 20:54 | disposition home or self-care (01) ==
LOC: JD.ED 17:42
DX: G89.29 Other chronic pain (principal); M54.2 Cervicalgia; M25.561 Pain in right knee; M25.562 Pain in left knee; M79.673 Pain in unspecified foot; M54.9 Dorsalgia, unspecified; F11.23 Opioid dependence with withdrawal; I10 Essential (primary) hypertension; M19.90 Unspecified osteoarthritis, unspecified site; E03.9 Hypothyroidism, unspecified; Z88.8 Allergy status to other drugs, medicaments and biological substances; Z79.899 Other long term (current) drug therapy
CPT/HCPCS: 36415; 70450; 80053; 85025; 85652; 86140; 96372; 99284; A9270; J1885

== ENCOUNTER 2021-06-18 17:29 | Emergency (ER) | payer MEDICARE, OTHER ==
[2021-06-18 17:55] VITALS: BP 175/74; PULSE 60
[2021-06-18] MEDS ORDERED: Sodium Chloride 0.9% 10 ML Syringe FLUSH PRN (18:37)
[2021-06-18] MEDS ORDERED: Metoclopramide 10 MG/2 ML SDV IVPUSH ONE (19:18)
[2021-06-18] MEDS ORDERED: diphenhydrAMINE 50 MG/ML SDV IVPUSH ONE (19:18)
[2021-06-18] MEDS ORDERED: Ketorolac 15 MG/ML SDV IVPUSH ONE (19:18)
--- NOTE | 2021-06-18 19:33 | EDM.PDOC ---
ED HPI GENERAL MEDICAL PROBLEM - General Chief Complaint: Cardiovascular Problem Stated Complaint: HIGH BP Time Seen by Provider: 06/18/21 19:10 Source of Information: Reports: Patient, Family History Limitations: Reports: No Limitations - History of Present Illness INITIAL COMMENTS - FREE TEXT/NARRATIVE: Patient is an 89-year-old female with a past medical history of hypertension presenting with a chief complaint of headache. Headache duration has been since Monday. Patient reports moderate to severe headaches on Monday which improved on . Headache worsened today. Patient reports headache starts in the neck and radiates up to the back of her head and top of her head. There is not worse on one side to the other. She seems to have associated symptoms which she describes as rumbling in her right ear. She does not describe it feeling like a heartbeat or like fluid. She has some sensitivity to noises and light. She has used Tylenol and hydrocodone with little relief. She was at the clinic earlier today and sent to the emergency room because of elevated blood pressure. Otherwise, she denies any fevers, chills, nausea, blurry vision, jaw claudi cation. Patient does have reports of bilateral thigh pain. No joint pain. Headache Pain Score (Numeric/FACES): 9 - Related Data Allergies Allergy/AdvReac Type Severity Reaction Status Date / Time simvastatin [From Zocor] Allergy unknown Verified 06/18/21 17:58 Eazehjq-BFW-ObR Reductase AdvReac Severe Muscle Verified 06/18/21 17:58 Inhibitor Weakness [Twhtcjc-Gpm-Xmr Reductase Inhibitor] Home Meds: Home Meds Levothyroxine [Synthroid] 75 mcg PO DAILY 04/09/17 [History] Loperamide [Imodium] 2 tab PO ASDIRECTED PRN 04/09/17 [History] Prasugrel HCl [Effient] 5 mg PO DAILY 04/09/17 [History] Alendronate [Fosamax] 1 dose PO ASDIRECTED 10/27/18 [History] ClonazePAM [KlonoPIN] 0.5 mg PO QPM 10/27/18 [History] FLUoxetine [PROzac] 40 mg PO DAILY 10/27/18 [History] Benzocaine/Menthol [Cepacol Sore Throat Lozenge] 1 each PO ASDIRECTED 10/14/20 [History] Acetaminophen [Tylenol Arthritis Pain] 650 mg PO TID 06/18/21 [History] Calcium Carbonate [Calcium] 600 mg PO DAILY 06/18/21 [History] Calcium Carbonate [Tums] 400 mg PO QID PRN 06/18/21 [History] Cholecalciferol (Vitamin D3) [Vitamin D3] 50 mcg PO DAILY 06/18/21 [History] Evolocumab [Repatha Syringe] 140 mg SQ ASDIRECTED 06/18/21 [History] Hydrocodone/Acetaminophen [HYDROcodone-Acetaminophen 5-325 MG] 1 tab PO Q8H PRN 06/18/21 [History] Multivit-Min/FA/Lycopen/Lutein [Certavite Senior Tablet] 1 tab PO DAILY 06/18/21 [History] Simethicone 160 mg PO QID PRN 06/18/21 [History] guaiFENesin/Dextromethorphan [Tussin Dm Max Liquid] 2 tsp PO Q4H PRN 06/18/21 [History] polyethylene glycoL 3350 [MiraLAX] 17 gm PO DAILY 06/18/21 [History] Past Medical History HEENT History: Reports: Cataract, Hard of Hearing, Impaired Vision, Other (See Below) Other HEENT History: menieres disease Cardiovascular History: Reports: High Cholesterol, Hypertension, Other (See Below) Other Cardiovascular History: occlusion and stenosis of bilateral carotid arteries Gastrointestinal History: Reports: Irritable Bowel Syndrome 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: Reports: Musculoskeletal History: Reports: Back Pain, Chronic, Neck Pain, Chronic, Osteoarthritis, Osteoporosis Neurological History: Reports: TIA, Vertigo, Other (See Below) Other Neuro History: vertigo, hyponatremia, hypo-osmolality Psychiatric History: Reports: Anxiety, Depression, Other (See Below) Other Psychiatric History: insomnia Endocrine/Metabolic History: Reports: Hypothyroidism - Past Surgical History HEENT Surgical History: Reports: Tonsillectomy GI Surgical History: Reports: Cholecystectomy Musculoskeletal Surgical History: Reports: Shoulder Surgery Social & Family History - Tobacco Use Tobacco Use Status *Q: Never Tobacco User Second Hand Smoke Exposure: No - Caffeine Use Caffeine Use: Reports: Coffee - Living Situation & Occupation Living situation: Reports: Occupation: Retired ED ROS GENERAL - Review of Systems Review Of Systems: See Below Free Text/Narrative/Comment: In addition to that documented in the HPI above, the additional ROS was obtained: Constitutional: Denies fevers or chills Eyes: Denies vision changes ENMT: Denies sore throat CV: Denies chest pain Resp: Denies SOB GI: Positive for diarrhea on Monday : Denies painful urination MSK: Denies recent trauma Skin: Denies new rashes Neuro: Denies new numbness or tingling or weakness Endocrine: Denies unexpected weight loss Heme: Denies bleeding disorders ED EXAM, GENERAL - Physical Exam Exam: See Below Free Text/Narrative:: I have reviewed the triage vital signs Const: Well nourished, well developed, appears stated age Eyes: Pupils Equal and reactive to light bilaterally, no conjunctival injection HENT: No signs of trauma or swelling, Neck supple without meningismus. Tympanic membrane normal bilaterally. No discharge CV: Regular Rate Rhythm, Warm, well-perfused extremities RESP: Unlabored respiratory effort GI: soft, non-tender, non-distended, no masses MSK: No gross deformities appreciated Skin: Warm, dry. 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 Sensation and motor function of extremities grossly intact. Psych: Appropriate mood and affect. #1 Interpretation EKG Date: 06/18/21 Time: 19:26 Rhythm: NSR Rate (Beats/Min): 58 Sweetser: Normal P-Wave: Present QRS: Normal QT: Normal ND/PQ Interval: Prolonged ND interval Comparison: No Change EKG Interpretation Comments: Abnormal EKG Course - Vital Signs Last Recorded V/S: Last Vital Signs Temp 36.6 C 06/18/21 17:53 Pulse 60 06/18/21 17:53 Resp 16 06/18/21 17:53 BP 175/74 H 06/18/21 17:53 Pulse Ox 96 06/18/21 17:53 - Orders/Labs/Meds Orders: Active Orders 24 hr Category Date Time Status Head wo Cont [CT] Stat Exams 06/18/21 19:19 Taken Sodium Chloride 0.9% [Saline Flush] Med 06/18/21 18:37 Active 10 ml FLUSH ASDIRECTED PRN Saline Lock Insert [OM.PC] Routine Oth 06/18/21 18:37 Ordered Medication Orders Sodium Chloride (Sodium Chloride 0.9% 10 Ml Syringe) 10 ml FLUSH ASDIRECTED PRN PRN Reason: Keep Vein Open Last Admin: 12/03/21 18:52 Dose: 10 ml Documented by: BRYAN Labs: Laboratory Tests 06/18/21 06/18/21 06/18/21 Range/Units 18:54 18:54 21:25 WBC 6.50 (3.98-10.04) K/mm3 RBC 3.93 L (3.98-5.22) M/mm3 Hgb 12.4 (11.2-15.7) gm/dl Hct 38.3 (34.1-44.9) % MCV 97.5 H (79.4-94.8) fl MCH 31.6 (25.6-32.2) pg MCHC 32.4 (32.2-35.5) g/dl RDW Std Deviation 44.8 (36.4-46.3) fL Plt Count 294 (182-369) K/mm3 MPV 9.1 L (9.4-12.3) fl Neutrophils % (Manual) 52 (40-60) % Band Neutrophils % 3 (0-10) % Lymphocytes % (Manual) 32 (20-40) % Atypical Lymphs % 3 % Monocytes % (Manual) 9 (2-10) % Eosinophils % (Manual) 1 (0.7-5.8) % Basophils % (Manual) 0 L (0.1-1.2) Platelet Estimate Adequate RBC Morph Comment Normal Sodium 141 (136-145) mEq/L Potassium 4.7 (3.5-5.1) mEq/L Chloride 104 (98-107) mEq/L Carbon Dioxide 30 (21-32) mEq/L Anion Gap 11.7 (5-15) BUN 15 (7-18) mg/dL Creatinine 0.8 (0.55-1.02) mg/dL Est Cr Clr Drug Dosing TNP Estimated GFR (MDRD) > 60 (>60) mL/min BUN/Creatinine Ratio 18.8 H (14-18) Glucose 99 (70-99) mg/dL Calcium 9.5 (8.5-10.1) mg/dL Total Bilirubin 0.5 (0.2-1.0) mg/dL AST 15 (15-37) U/L ALT 20 (14-59) U/L Alkaline Phosphatase 39 L (46-116) U/L Troponin I < 0.017 (0.00-0.056) ng/mL Total Protein 6.5 (6.4-8.2) g/dl Albumin 3.5 (3.4-5.0) g/dl Globulin 3.0 gm/dL Albumin/Globulin Ratio 1.2 (1-2) SARS-CoV-2 RNA (DEMOND) Negative (NEGATIVE) Meds: Medications Generic Name Dose Route Start Last Admin Trade Name Rogerq PRN Reason Stop Dose Admin Sodium Chloride 10 ml 06/18/21 18:37 06/18/21 18:52 Sodium Chloride 0.9% 10 Ml Syringe FLUSH 10 ml ASDIRECTED PRN Administration Keep Vein Open Discontinued Medications Generic Name Dose Route Start Last Admin Trade Name Freq PRN Reason Stop Dose Admin Diphenhydramine HCl 12.5 mg 06/18/21 19:18 06/18/21 19:57 Diphenhydramine 50 Mg/Ml Sdv IVPUSH 06/18/21 19:19 12.5 mg ONETIME ONE Administration Ketorolac Tromethamine 15 mg 06/18/21 19:18 06/18/21 19:58 Ketorolac 15 Mg/Ml Sdv IVPUSH 06/18/21 19:19 15 mg ONETIME ONE Administration Metoclopramide HCl 5 mg 06/18/21 19:18 06/18/21 19:59 Metoclopramide 10 Mg/2 Ml Sdv IVPUSH 06/18/21 19:19 5 mg ONETIME ONE Administration - Re-Assessments/Exams Free Text/Narrative Re-Assessment/Exam: 06/18/21 21:22 On reevaluation, headache is entirely resolved. Still pending Covid testing at this time. Departure - Departure Time of Disposition: 22:25 Disposition: Home, Self-Care 01 Clinical Impression: Tension-type headache, HTN (hypertension) Instructions: Tension Headache, Adult, [id number], Hypertension, Adult, [id number] Referrals: Blanca Michele TRANSMISSION MECHANIC [Primary Care Provider] - Forms: ED Department Discharge Additional Instructions: Please follow-up with your primary care doctor in the next several days for blood pressure recheck. Return to the emergency room for worsening symptoms or any other major concerns. Sepsis Event Note (ED) - Evaluation Sepsis Screening Result: No Definite Risk - Focused Exam Vital Signs: Vital Signs Temp Pulse Resp BP Pulse Ox 06/18/21 17:53 36.6 C 60 16 175/74 H 96 - My Orders Last 24 Hours: My Active Orders 06/18/21 18:37 Sodium Chloride 0.9% [Saline Flush] 10 ml FLUSH ASDIRECTED PRN Saline Lock Insert [OM.PC] Routine 06/18/21 19:19 Head wo Cont [CT] Stat - Assessment/Plan Last 24 Hours: My Active Orders 06/18/21 18:37 Sodium Chloride 0.9% [Saline Flush] 10 ml FLUSH ASDIRECTED PRN Saline Lock Insert [OM.PC] Routine 06/18/21 19:19 Head wo Cont [CT] Stat Assessment:: Patient is a 89-year-old female presents to emergency room with headache. Patient had unremarkable ER course. Headache entirely resolved. Laboratory studies and head CT were negative for acute pathology. Differential diagnosis considered for this patient include temporal arteritis, meningitis/encephalitis, subarachnoid hemorrhage, subdural hematoma. At this point, work-up is not consistent with any of these above findings and I do not believe this is hypertensive emergency. Patient will need blood pressure rechecked in the next 1 week. Return precautions discussed as usual. Patient discharged in stable condition.
--- NOTE | 2021-06-19 06:49 | CT ---
Head CT Technique: Multiple axial sections through the brain were obtained. Intravenous contrast was not utilized. Reconstructed coronal and sagittal images were obtained. Comparison: Prior head CT study of 03/13/21. Findings: Ventricles along with basal cisterns and sulci over the convexities are mildly prominent. Mild diminished density is noted within the subcortical and periventricular white matter which is compatible with small vessel ischemic demyelination change. No other abnormal parenchymal densities are seen. No evidence of intracranial hemorrhage is seen. No midline shift or mass-effect is seen. Bone window settings were reviewed. Visualized mastoid sinuses and paranasal sinuses show nothing acute. Atherosclerotic calcification is seen within the carotid siphon as well as minimal calcification within the vertebral arteries. No acute calvarial finding is seen. Impression: 1. Senescent change as described above. 2. No acute intracranial abnormality is appreciated. 3. No change is seen from previous head CT exam. Diagnostic code #2 I agree with preliminary report from [facility], finalized on 06/18/21, 9:45 PM BUSINESS LIBRARIAN, code 1
== END 2021-06-18 23:00 | disposition home or self-care (01) ==
LOC: JD.ED 17:29
DX: G44.209 Tension-type headache, unspecified, not intractable (principal); I10 Essential (primary) hypertension; E78.00 Pure hypercholesterolemia, unspecified; Z86.73 Personal history of transient ischemic attack (TIA), and cerebral infarction without residual deficits; Z88.8 Allergy status to other drugs, medicaments and biological substances; Z79.899 Other long term (current) drug therapy; Z20.822 Contact with and (suspected) exposure to COVID-19
CPT/HCPCS: 36415; 70450; 80053; 84484; 85007; 85027; 93005; 96374; 96375; 99284; J1200; J1885; J2765; U0002